=== PATIENT | female | born 2000 | race Two or more races ===

== ENCOUNTER 2021-09-28 10:25 | Emergency (ER) | payer OTHER ==
[~2021-09-28] VITALS: Ht 162.6 cm; Wt 54.4 kg
== END 2021-09-28 11:29 | disposition home or self-care (01) ==
LOC: EMR PED 10:25
DX: S61.012A Laceration without foreign body of left thumb without damage to nail, initial encounter (principal); X58.XXXA Exposure to other specified factors, initial encounter; Y93.89 Activity, other specified; Y92.89 Other specified places as the place of occurrence of the external cause